=== PATIENT | male | born 1960 | race Caucasian/White ===

== ENCOUNTER 2017-08-03 16:08 | Emergency (ER) | payer MEDICAID ==
[~2017-08-03] VITALS: Ht 190.5 cm; Wt 79.6 kg
[~2017-08-03 16:08] MED LIST: ALBU18HF2 IH; FEXO1TAB8 PO; FLO0.4C PO; HYDR-3972 PO; HYDR-565 PO; OMEP40CA37 PO; PHE12.5T PO
[2017-08-03 16:16] VITALS: BP 116/83
[2017-08-03] MEDS ORDERED: SULF1TAB49 PO (18:36)
[2017-08-03] MEDS ORDERED: CEPH-572 PO (18:36)
[2017-08-03] MEDS ORDERED: vancomycin/NS 1 GM ADD-VANTAGE 250 ML X 1 DOSE IV ONE (18:40)
== END 2017-08-03 20:49 | disposition home or self-care (01) ==
LOC: ER 16:09
DX: L03.031 Cellulitis of right toe (principal); J44.9 Chronic obstructive pulmonary disease, unspecified; K21.9 Gastro-esophageal reflux disease without esophagitis; M19.90 Unspecified osteoarthritis, unspecified site; Z88.5 Allergy status to narcotic agent; Z79.899 Other long term (current) drug therapy
CPT/HCPCS: 73660; 96365; 96366; 99285; A6255; A6449; J3370

== ENCOUNTER 2017-08-07 08:40 | Day surgery (SDC) | payer MEDICAID ==
[~2017-08-07 08:40] MED LIST changes: +CEPH-572 PO; +SULF1TAB49 PO
[2017-08-07] MEDS ORDERED: LIDOcaine 2% 5ml jelly ONE (09:51)
== END 2017-08-07 10:46 | disposition home or self-care (01) ==
LOC: WOUND CARE 08:40
PROVIDERS: ATTEND Surgery
DX: L97.511 Non-pressure chronic ulcer of other part of right foot limited to breakdown of skin (principal); G62.9 Polyneuropathy, unspecified; J44.9 Chronic obstructive pulmonary disease, unspecified; L84 Corns and callosities; K21.9 Gastro-esophageal reflux disease without esophagitis; M19.90 Unspecified osteoarthritis, unspecified site; F17.210 Nicotine dependence, cigarettes, uncomplicated; F10.10 Alcohol abuse, uncomplicated; Z79.899 Other long term (current) drug therapy
CPT/HCPCS: 97597; A6021; A6206

== ENCOUNTER 2017-08-14 09:33 | Day surgery (SDC) | payer MEDICAID ==
[~2017-08-14 09:33] MED LIST changes: -HYDR-3972 PO; -HYDR-565 PO
[2017-08-14] MEDS ORDERED: LIDOcaine 2% 5ml jelly ONE (10:21)
== END 2017-08-14 11:30 | disposition home or self-care (01) ==
LOC: WOUND CARE 09:33
PROVIDERS: ATTEND Surgery
DX: L97.511 Non-pressure chronic ulcer of other part of right foot limited to breakdown of skin (principal); G62.9 Polyneuropathy, unspecified; J44.9 Chronic obstructive pulmonary disease, unspecified; L84 Corns and callosities; K21.9 Gastro-esophageal reflux disease without esophagitis; M19.90 Unspecified osteoarthritis, unspecified site; F17.210 Nicotine dependence, cigarettes, uncomplicated; F10.10 Alcohol abuse, uncomplicated; Z79.899 Other long term (current) drug therapy
CPT/HCPCS: 97597; A6206

== ENCOUNTER 2017-08-21 09:33 | Outpatient (CLI) | payer MEDICAID ==
[~2017-08-21 09:33] MED LIST changes: -CEPH-572 PO; -SULF1TAB49 PO
[2017-08-21] MEDS ORDERED: LIDOcaine 2% 5ml jelly ONE (09:52)
== END 2017-08-21 10:32 | disposition home or self-care (01) ==
LOC: WOUND CARE 09:33
PROVIDERS: ATTEND Surgery
DX: L97.511 Non-pressure chronic ulcer of other part of right foot limited to breakdown of skin (principal); G62.9 Polyneuropathy, unspecified; J44.9 Chronic obstructive pulmonary disease, unspecified; L84 Corns and callosities; K21.9 Gastro-esophageal reflux disease without esophagitis; M19.90 Unspecified osteoarthritis, unspecified site; F17.210 Nicotine dependence, cigarettes, uncomplicated; F10.10 Alcohol abuse, uncomplicated; Z79.899 Other long term (current) drug therapy
CPT/HCPCS: 99215; A4414

== ENCOUNTER 2017-12-14 09:23 | Day surgery (SDC) | payer MEDICAID | END 2017-12-14 12:45 | disposition home or self-care (01) | LOC: WOUND CARE 09:23 | PROVIDERS: ATTEND Surgery | DX: L89.892 Pressure ulcer of other site, stage 2 (principal); L97.521 Non-pressure chronic ulcer of other part of left foot limited to breakdown of skin; G62.9 Polyneuropathy, unspecified; J44.9 Chronic obstructive pulmonary disease, unspecified; L84 Corns and callosities; K21.9 Gastro-esophageal reflux disease without esophagitis; M19.90 Unspecified osteoarthritis, unspecified site; F17.210 Nicotine dependence, cigarettes, uncomplicated; F10.10 Alcohol abuse, uncomplicated; Z79.899 Other long term (current) drug therapy | CPT/HCPCS: 97597; A6021; A6206; A6209 ==

== ENCOUNTER 2017-12-21 09:26 | Day surgery (SDC) | payer MEDICAID | END 2017-12-21 12:32 | disposition home or self-care (01) | LOC: WOUND CARE 09:26 | PROVIDERS: ATTEND Surgery | DX: L89.892 Pressure ulcer of other site, stage 2 (principal); L97.521 Non-pressure chronic ulcer of other part of left foot limited to breakdown of skin; G62.9 Polyneuropathy, unspecified; J44.9 Chronic obstructive pulmonary disease, unspecified; L84 Corns and callosities; K21.9 Gastro-esophageal reflux disease without esophagitis; M19.90 Unspecified osteoarthritis, unspecified site; F17.210 Nicotine dependence, cigarettes, uncomplicated; F10.10 Alcohol abuse, uncomplicated; Z79.899 Other long term (current) drug therapy | CPT/HCPCS: 97597; A4414 ==

== ENCOUNTER 2023-07-17 19:34 | Inpatient (IN) | payer MEDICAID ==
[~2023-07-17] VITALS: Ht 190.5 cm; Wt 83.2 kg
[~2023-07-17 19:34] MED LIST changes: +OMEP40CA21 PO; -OMEP40CA37 PO; -PHE12.5T PO; +PROM12.512 PO
[2023-07-17 20:32] LABS: BASOPHILS # (AUTO) 0.1 X10'3 (0-0.2); EOSINOPHILS # (AUTO) 0.2 X10'3 (0-0.9); EOSINOPHILS % (AUTO) 2.3 % (0-6); HEMATOCRIT 38.4 % (42.0-52.0); HEMOGLOBIN 12.9 g/dl (14.0-17.9); LYMPHOCYTES # (AUTO) 1.3 X10'3 (1.1-4.8); LYMPHOCYTES % (AUTO) 16.8 % (21-51); MEAN CORPUSCULAR HEMOGLOBIN 34.4 PG (27.0-31.0); MEAN CORPUSCULAR HGB CONC 33.7 g/dL (33.0-36.5); MEAN CORPUSCULAR VOLUME 102.1 FL (78-98); MEAN PLATELET VOLUME 8.5 FL (7.4-10.4); MONOCYTES # (AUTO) 0.5 X10'3 (0-0.9); MONOCYTES % (AUTO) 6.1 % (2-12); NEUTROPHILS # (AUTO) 5.6 X10'3 (1.8-7.7); NEUTROPHILS % (AUTO) 73.8 % (42-75); PLATELET COUNT 125 X10'3 (140-440); RED BLOOD COUNT 3.76 X10'6 (4.70-6.10); RED CELL DISTRIBUTION WIDTH 13.9 % (11.5-14.5); WHITE BLOOD COUNT 7.6 X10'3 (4.5-11.0)
[2023-07-17 20:37] LABS: ALANINE AMINOTRANSFERASE 132 U/L (12-78); ALBUMIN 3.9 G/DL (3.4-5.0); ALKALINE PHOSPHATASE 57 IU/L (46-116); ANION GAP 17 (8-16); ASPARTATE AMINO TRANSFERASE 167 U/L (10-37); BLOOD UREA NITROGEN 22 MG/DL (7-18); BUN/CREATININE RATIO 14.7 (10.0-20.0); CALCIUM 9.9 MG/DL (8.5-10.1); CHLORIDE 103 MMOL/L (99-107); GLUCOSE 120 MG/DL (70-104); POTASSIUM 4.2 MMOL/L (3.5-5.1); SODIUM 139 MMOL/L (135-145); TOTAL PROTEIN 7.7 G/DL (6.4-8.2); eCRCL 59 ML/MIN; eGFR 47 ML/MIN
[2023-07-17 22:30] LABS: BILIRUBIN,URINE NEGATIVE (Neg); CLARITY,URINE CLEAR (Clear); GLUCOSE, URINE NEGATIVE (Neg); KETONES,URINE 15 mg/dl (Neg); LEUKOCYTE ESTERASE ,URINE NEGATIVE (Neg); NITRITES, URINE NEGATIVE (Neg); OCCULT BLOOD,URINE TRACE-INTACT (Neg); PH,URINE 5.5 (4.8-8.0); PROTEIN,URINE 30 mg/dl (Neg); UROBILINOGEN,URINE 0.2 E.U/dL (0.2-1.0)
[2023-07-17 22:35] LABS: LIPASE > 375 U/L (16-77)
[2023-07-17 22:36] LABS: COLOR,URINE AMBER (Yellow); UA COLLECTION TYPE CLN CATCH MIDSTREAM
[2023-07-17 22:37] LABS: SQUAMOUS EPITHELIAL CELL,UR FEW /LPF (FEW)
[2023-07-17 22:38] LABS: BACTERIA,URINE 1+ /HPF (Neg); RBC,URINE 0-2 /HPF (0-2); WBC,URINE NONE SEEN /HPF (0-4)
[2023-07-18] VITALS (13 sets, daily range): BP systolic 124–160; BP diastolic 70–95; PULSE 78–108; RESP 16–20; TEMP 97.5–99.8; O2SAT 97–100
[2023-07-18] MEDS: normal saline 1000ML IV soln IVB ONE (00:20)
[2023-07-18] MEDS: ondansetron/PF 4mg/2ml inj IV ONE (00:21)
[2023-07-18] MEDS: morphine 4 MG/ML inj SYRINge IV PRN (00:23)
[2023-07-18] MEDS ORDERED: acetaminophen 325mg tablet PO PRN (01:35)
[2023-07-18] MEDS ORDERED: potassium Cl 40MEQ/1/2NS 520ml 520 ML IV PRN (01:35)
[2023-07-18] MEDS ORDERED: potassium Cl 20 mEq SR tablet PO PRN ×2 (01:35)
[2023-07-18] MEDS ORDERED: magnesium hydroxide 30ml (MOM) UD suspension PO PRN (01:35)
[2023-07-18] MEDS ORDERED: mag hydrox/Alum hydrox/simeth 30ml oral suspension PO PRN (01:35)
[2023-07-18] MEDS ORDERED: albuterol 2.5 MG/3 ML nebule NEB PRN (01:35)
[2023-07-18] MEDS ORDERED: morphine 2 MG/ML inj. syringe IV PRN (01:35)
[2023-07-18] MEDS ORDERED: loperamide 2mg capsule PO PRN (01:45)
[2023-07-18] MEDS ORDERED: LORazepam 2 mg/ml vial IV PRN (01:45)
[2023-07-18] MEDS ORDERED: haloperidol 5mg tablet PO PRN (01:45)
[2023-07-18] MEDS ORDERED: haloperidol lactate 5mg/ml inj IM PRN (01:45)
[2023-07-18] MEDS: normal saline 1000ml 1,000 ML IV ONE (02:10)
[2023-07-18] MEDS: pantoprazole 40 MG vial IV ONE (02:10)
[2023-07-18] MEDS: normal saline 1000ml 1,000 ML IV SCH (03:19)
[2023-07-18] MEDS: metoclopramide 5 mg/ml inj IV PRN (03:43)
[2023-07-18] MEDS: morphine 2 MG/ML inj. syringe IV PRN (03:44)
[2023-07-18 07:34] LABS: MAGNESIUM 1.1 MG/DL (1.5-2.4); POTASSIUM 5.1 MMOL/L (3.5-5.1)
[2023-07-18] MEDS: K and/or MAG REPLACEMENT MC SCH (08:00)
[2023-07-18] MEDS: docusate sod 100mg capsule PO SCH (08:00)
[2023-07-18] MEDS: folic acid 1mg/0.2ml inj IV SCH (08:00)
[2023-07-18] MEDS: magnesium Cl slow-release 64mg tablet PO PRN (08:34)
[2023-07-18] MEDS: atenolol 50mg tablet PO SCH (08:35)
[2023-07-18] MEDS: multivitamins, therapeutics tablet PO SCH (08:35)
[2023-07-18] MEDS: pantoprazole 40mg Tablet.DR PO SCH (08:35)
[2023-07-18] MEDS: nicotine 14mg patch - 24hr TD SCH (08:37)
[2023-07-18] MEDS: thiamine 100mg/ml 2ml inj. IV SCH (08:37)
[2023-07-18] MEDS: heparin, porcine 5000 units/ml vial SQ SCH (08:39)
[2023-07-18 09:27] LABS: BASOPHILS % (AUTO) 0.3 % (0-1); EOSINOPHILS % (AUTO) 0.1 % (0-6); HEMATOCRIT 31.8 % (42.0-52.0); HEMOGLOBIN 10.9 g/dl (14.0-17.9); LYMPHOCYTES # (AUTO) 0.6 X10'3 (1.1-4.8); MEAN CORPUSCULAR HEMOGLOBIN 34.6 PG (27.0-31.0); MEAN CORPUSCULAR HGB CONC 34.2 g/dL (33.0-36.5); MEAN CORPUSCULAR VOLUME 101.2 FL (78-98); MEAN PLATELET VOLUME 8.6 FL (7.4-10.4); MONOCYTES # (AUTO) 0.4 X10'3 (0-0.9); MONOCYTES % (AUTO) 7.6 % (2-12); NEUTROPHILS # (AUTO) 4.3 X10'3 (1.8-7.7); PLATELET COUNT 91 X10'3 (140-440); RED BLOOD COUNT 3.14 X10'6 (4.70-6.10); RED CELL DISTRIBUTION WIDTH 13.5 % (11.5-14.5); WHITE BLOOD COUNT 5.3 X10'3 (4.5-11.0)
[2023-07-18 09:48] LABS: ALANINE AMINOTRANSFERASE 100 U/L (12-78); ALBUMIN 3.3 G/DL (3.4-5.0); ALKALINE PHOSPHATASE 43 IU/L (46-116); ANION GAP 10 (8-16); ASPARTATE AMINO TRANSFERASE 100 U/L (10-37); BILIRUBIN,TOTAL 1.3 MG/DL (0.1-1.0); BLOOD UREA NITROGEN 25 MG/DL (7-18); BUN/CREATININE RATIO 17.2 (10.0-20.0); CALCIUM 7.9 MG/DL (8.5-10.1); CHLORIDE 104 MMOL/L (99-107); CREATININE 1.45 MG/DL (0.60-1.10); GLUCOSE 109 MG/DL (70-104); POTASSIUM 5.1 MMOL/L (3.5-5.1); SODIUM 137 MMOL/L (135-145); TOTAL CARBON DIOXIDE 22.6 MMOL/L (24-32); TOTAL PROTEIN 6.5 G/DL (6.4-8.2); eCRCL 61 ML/MIN; eGFR 49 ML/MIN
[2023-07-18 09:49] LABS: LIPASE > 375 U/L (16-77)
[2023-07-18 10:12] LABS: HEMOGLOBIN A1C 5.6 % (4.5-6.2)
[2023-07-18] MEDS: pneumococcal 23-VAL P-sac vacc 25 mcg/0.5ml vial IMVAC ONE (10:23)
[2023-07-18] MEDS ORDERED: ipratropium/albuterol 3ml nebule NEB PRN (20:40)
[2023-07-18] MEDS: ondansetron/PF 4mg/2ml inj IV PRN (21:13)
[2023-07-19] VITALS (12 sets, daily range): BP systolic 112–141; BP diastolic 60–90; PULSE 66–87; RESP 14–20; TEMP 98.5–99.8; O2SAT 96–98
[2023-07-19 08:22] LABS: BASOPHILS % (AUTO) 0.4 % (0-1); EOSINOPHILS # (AUTO) 0.1 X10'3 (0-0.9); EOSINOPHILS % (AUTO) 0.9 % (0-6); HEMATOCRIT 29.4 % (42.0-52.0); HEMOGLOBIN 10.1 g/dl (14.0-17.9); LYMPHOCYTES # (AUTO) 0.9 X10'3 (1.1-4.8); LYMPHOCYTES % (AUTO) 15.9 % (21-51); MEAN CORPUSCULAR HEMOGLOBIN 35.2 PG (27.0-31.0); MEAN CORPUSCULAR HGB CONC 34.4 g/dL (33.0-36.5); MEAN CORPUSCULAR VOLUME 102.4 FL (78-98); MEAN PLATELET VOLUME 8.6 FL (7.4-10.4); MONOCYTES # (AUTO) 0.5 X10'3 (0-0.9); MONOCYTES % (AUTO) 9.5 % (2-12); NEUTROPHILS % (AUTO) 73.3 % (42-75); PLATELET COUNT 65 X10'3 (140-440); RED BLOOD COUNT 2.87 X10'6 (4.70-6.10); RED CELL DISTRIBUTION WIDTH 13.6 % (11.5-14.5); WHITE BLOOD COUNT 5.5 X10'3 (4.5-11.0)
[2023-07-19 08:27] LABS: ALANINE AMINOTRANSFERASE 64 U/L (12-78); ALBUMIN 2.8 G/DL (3.4-5.0); ALKALINE PHOSPHATASE 37 IU/L (46-116); ANION GAP 11 (8-16); ASPARTATE AMINO TRANSFERASE 59 U/L (10-37); BILIRUBIN,TOTAL 1.4 MG/DL (0.1-1.0); BLOOD UREA NITROGEN 20 MG/DL (7-18); BUN/CREATININE RATIO 15.9 (10.0-20.0); CALCIUM 7.5 MG/DL (8.5-10.1); CHLORIDE 104 MMOL/L (99-107); CHOL/HDL RATIO 2.3 (0.00-4.99); CHOLESTEROL 138 MG/DL (0-200); CREATININE 1.26 MG/DL (0.60-1.10); GLUCOSE 77 MG/DL (70-104); HDL CHOLESTEROL 61 MG/DL (35-60); LDL CHOLESTEROL 63 MG/DL (50-100); LIPASE > 375 U/L (16-77); MAGNESIUM 1.2 MG/DL (1.5-2.4); PHOSPHORUS 2.5 MG/DL (2.3-4.5); SODIUM 137 MMOL/L (135-145); TOTAL CARBON DIOXIDE 22.3 MMOL/L (24-32); TOTAL PROTEIN 5.6 G/DL (6.4-8.2); TRIGLYCERIDES 95 MG/DL (20-135); eCRCL 71 ML/MIN; eGFR 58 ML/MIN
[2023-07-19] MEDS: magnesium 2GM in 50ml NS 50 ML IV PRN (09:17)
[2023-07-19] MEDS: magnesium 4gm in 100ml NS 100 ML IV PRN (11:44)
[2023-07-20] MEDS ORDERED: LORazepam 2 mg/ml vial IV PRN (01:45)
[2023-07-20] MEDS ORDERED: LORazepam 1 MG tablet PO PRN (01:45)
[2023-07-20 06:00] VITALS: BP 133/84; PULSE 77; RESP 16; TEMP 98.2; O2SAT 98
[2023-07-20 07:20] LABS: EOSINOPHILS # (AUTO) 0.1 X10'3 (0-0.9); MEAN CORPUSCULAR HGB CONC 34.2 g/dL (33.0-36.5); MONOCYTES # (AUTO) 0.7 X10'3 (0-0.9); NEUTROPHILS # (AUTO) 5.3 X10'3 (1.8-7.7)
[2023-07-20 07:22] LABS: BASOPHILS % (AUTO) 0.3 % (0-1); EOSINOPHILS % (AUTO) 0.8 % (0-6); HEMATOCRIT 30.6 % (42.0-52.0); HEMOGLOBIN 10.5 g/dl (14.0-17.9); LYMPHOCYTES % (AUTO) 13.8 % (21-51); MEAN CORPUSCULAR HEMOGLOBIN 34.8 PG (27.0-31.0); MEAN CORPUSCULAR VOLUME 101.5 FL (78-98); MONOCYTES % (AUTO) 9.7 % (2-12); NEUTROPHILS % (AUTO) 75.4 % (42-75); PLATELET COUNT 66 X10'3 (140-440); RED BLOOD COUNT 3.02 X10'6 (4.70-6.10); RED CELL DISTRIBUTION WIDTH 13.3 % (11.5-14.5)
[2023-07-20 07:55] LABS: ALANINE AMINOTRANSFERASE 58 U/L (12-78); ALBUMIN 2.8 G/DL (3.4-5.0); ALBUMIN/GLOBULIN RATIO 0.8 (1.1-1.5); ALKALINE PHOSPHATASE 45 IU/L (46-116); ANION GAP 10 (8-16); ASPARTATE AMINO TRANSFERASE 57 U/L (10-37); BILIRUBIN,TOTAL 1.6 MG/DL (0.1-1.0); BLOOD UREA NITROGEN 16 MG/DL (7-18); BUN/CREATININE RATIO 14.5 (10.0-20.0); CALCIUM 7.9 MG/DL (8.5-10.1); CHLORIDE 102 MMOL/L (99-107); GLUCOSE 78 MG/DL (70-104); LIPASE 173 U/L (16-77); MAGNESIUM 2.2 MG/DL (1.5-2.4); PHOSPHORUS 2.4 MG/DL (2.3-4.5); POTASSIUM 3.6 MMOL/L (3.5-5.1); SODIUM 133 MMOL/L (135-145); TOTAL CARBON DIOXIDE 21.1 MMOL/L (24-32); TOTAL PROTEIN 6.1 G/DL (6.4-8.2); eCRCL 81 ML/MIN; eGFR 68 ML/MIN
[2023-07-20 08:00] VITALS: BP_SYST 115; BP_SYST 120; BP_SYST 121; BP_DIAS 65; BP_DIAS 66; BP_DIAS 69; PULSE 74; PULSE 79
[2023-07-20 09:32] VITALS: PULSE 74; RESP 16; O2SAT 98
[2023-07-20 10:00] VITALS: BP 115/69; PULSE 77; RESP 15; TEMP 99.1; O2SAT 96
[2023-07-20] MEDS ORDERED: NICO-631 TD (11:38)
[2023-07-20] MEDS ORDERED: ONDA4TAB12 PO (11:38)
[2023-07-21] MEDS ORDERED: thiamine 100mg tablet PO SCH (08:00)
[2023-07-22] MEDS ORDERED: LORazepam 2 mg/ml vial IV PRN (01:45)
[2023-07-22] MEDS ORDERED: LORazepam 1 MG tablet PO PRN (01:45)
[2023-07-22] MEDS ORDERED: folic acid 1mg tablet PO SCH (08:00)
== END 2023-07-20 12:39 | disposition home or self-care (01) | DRG 282 ==
LOC: ER 19:34 → UNDOADMIN 07-18 01:41 → ED HOLD 07-18 01:41 → ORTHO 4S 07-18 03:05 → ED HOLD 07-18 03:05 → ORTHO 4S 07-18 20:43 → ED HOLD 07-18 20:43 → UNDODISIN 07-20 12:39
PROVIDERS: ADMIT Internal Medicine Critical Care Medicine; ATTEND Family Medicine
DX: K85.20 Alcohol induced acute pancreatitis without necrosis or infection (principal); N17.0 Acute kidney failure with tubular necrosis; J44.9 Chronic obstructive pulmonary disease, unspecified; F17.210 Nicotine dependence, cigarettes, uncomplicated; K21.9 Gastro-esophageal reflux disease without esophagitis; E86.0 Dehydration; N40.0 Benign prostatic hyperplasia without lower urinary tract symptoms; E87.20 Acidosis, unspecified; I10 Essential (primary) hypertension; F10.20 Alcohol dependence, uncomplicated; Z79.899 Other long term (current) drug therapy; Z88.5 Allergy status to narcotic agent
CPT/HCPCS: 36415; 71045; 74176; 76700; 80053; 80061; 81001; 83036; 83690; 83735; 84100; 84132; 85025; 87081; 90732; 94760; 96374; 96375; 97161; 97530; 99285; C1758; C9113; G0378; J1644; J2270; J2405; J2765; J3411; J3475; J3490; J7030; J7040

== ENCOUNTER → 2023-08-11 | Outpatient (CLI) | payer MEDICAID ==
[2023-08-11] VITALS (19 sets, daily range): BP systolic 55–148; BP diastolic 38–98; PULSE 79–125
[~2023-08-11] MED LIST changes: +NICO-631 TD; +ONDA4TAB12 PO
== END | disposition home or self-care (01) ==
LOC: CARD DIAG 10:08
PROVIDERS: ATTEND Nurse Practitioner Family
DX: R55 Syncope and collapse (principal); I10 Essential (primary) hypertension
CPT/HCPCS: 93660